=== PATIENT | female | born 1980 | race Caucasian/White ===

== ENCOUNTER 2023-01-05 07:06 | Inpatient (IN) | payer OTHER ==
[2023-01-05] MEDS ORDERED: SODIUM CHLORIDE 0.9% 1,000 ML IV STA (07:33)
[2023-01-05] MEDS ORDERED: ONDANSETRON 4 MG/2 ML VIAL IVP STA (07:33)
[2023-01-05] MEDS ORDERED: KETOROLAC 15 MG/ML 1 ML VIAL IVP STA ×2 (07:33→12:10)
--- NOTE | 2023-01-05 07:39 | ED ---
Abdominal Pain HPI - General Source: patient, RN notes reviewed Mode of arrival: ambulatory Limitations: no limitations - History of Present Illness MD Complaint: abdominal pain, flank pain Location: R flank Radiation: RLQ Associated Symptoms: nausea <Georgina Bravo - Last Filed: 01/09/23 17:00> <Jhonny Van - Last Filed: 01/10/23 21:10> - General Chief Complaint: Abdominal Pain Stated Complaint: Abdominal pain, Nausea, Lowerback Pain Time Seen by Provider: 01/05/23 07:27 - History of Present Illness Initial Comments: This is a 42-year-old female who presents to the emergency department for right flank pain. Patient states that this woke her up at around 12:30 AM. Denies any history of similar symptoms in the past. States that she does have some radiation into the right lower quadrant. She does not have her appendix. Also has no history of kidney stones. She has urinary urgency but no burning with urination or blood in the urine. Denies any changes in bowel habits. She feels nauseous but has no vomiting. With regards to the patient's obstetrics history. She is . Her children are 16 and 17 years old. She had a tubal ligation 15.5 years ago followed by a uterine ablation 12 years ago. Since then her periods have been regular, occurring every 4 weeks. Last period was 2 weeks ago. She is not currently follow with an [facility], and has not done so for several years. Denies any fevers, chills, sore throat, cough, dyspnea, chest pain, palpitations, vomiting, diarrhea, or headaches. (Georgina Bravo) - Related Data Home Medications Medication Instructions Recorded Confirmed No Known Home Medications 01/05/23 01/05/23 Allergies Allergy/AdvReac Type Severity Reaction Status Date / Time No Known Allergies Allergy Verified 01/05/23 14:34 Review of Systems ROS Other: All systems not noted in ROS Statement are negative. <Georigna Bravo - Last Filed: 01/09/23 17:00> ROS Other: All systems not noted in ROS Statement are negative. <Jhonny Van - Last Filed: 01/10/23 21:10> ROS Statement: Those systems with pertinent positive or pertinent negative responses have been documented in the HPI. Past Medical History Past Medical History: No Reported History History of Any Multi-Drug Resistant Organisms: None Reported Past Surgical History: Cholecystectomy Past Psychological History: No Psychological Hx Reported Smoking Status: Never smoker Past Alcohol Use History: Occasional Past Drug Use History: None Reported <Georgina Bravo - Last Filed: 01/09/23 17:00> General Exam Limitations: no limitations General appearance: alert, in distress Head exam: Present: atraumatic, normocephalic, normal inspection Respiratory exam: Present: normal lung sounds bilaterally. Absent: respiratory distress, wheezes, rales, rhonchi, stridor Cardiovascular Exam: Present: regular rate, normal rhythm, normal heart sounds. Absent: systolic murmur, diastolic murmur, rubs, gallop, clicks GI/Abdominal exam: Present: soft, tenderness (RLQ), normal bowel sounds. Absent: distended, guarding, rebound, rigid External exam: Present: normal external exam. Absent: erythema, swelling Speculum exam: Present: normal speculum exam. Absent: erythema, vaginal discharge, cervical discharge, vaginal bleeding By manual exam: Present: adnexal tenderness (Right) Neurological exam: Present: alert, oriented X3, CN II-XII intact Psychiatric exam: Present: normal affect, normal mood Skin exam: Present: warm, dry, intact, normal color. Absent: rash <Georgina Bravo - Last Filed: 01/09/23 17:00> Course Vital Signs 01/05/23 01/05/23 01/05/23 07:10 10:00 10:36 Temperature 98 F 97.8 F Pulse Rate 109 H 85 82 Respiratory 18 20 18 Rate Blood Pressure 138/84 93/71 102/71 O2 Sat by Pulse 100 98 97 Oximetry 01/05/23 13:00 Temperature Pulse Rate 78 Respiratory 18 Rate Blood Pressure 100/69 O2 Sat by Pulse 98 Oximetry Medical Decision Making - Lab Data Result diagrams: 01/06/23 21:13 01/05/23 08:17 - Radiology Data Radiology results: report reviewed, image reviewed <Georgina Bravo - Last Filed: 01/09/23 17:00> - Lab Data Result diagrams: 01/06/23 21:13 01/05/23 08:17 <Jhonny Van - Last Filed: 01/10/23 21:10> - Medical Decision Making This is a 42-year-old female who presents to the emergency department for right flank pain. Was pt. sent in by a medical professional or institution? @ -No Did you speak to anyone other than the patient for history? @ -No Did you review nursing and triage notes? @ -Yes, and I agree, it is accurate with regards to the patient's symptoms. Were old charts reviewed? @ -No Differential Diagnosis? @ -Differential Back Pain: Strain, zoster, cauda equina syndrome, epidural abscess, vertebral osteomyelitis, discitis, fracture, subluxation, disc herniation, DJD, spinal stenosis, dissection, AAA, pancreatitis, peptic ulcer disease, pyelonephritis, kidney stone, this is not meant to be an all-inclusive list. -Differential Abdominal Pain Women: Appendicitis, Cholecystitis, diverticulosis, ischemic bowel, pancreatitis, hepatitis, UTI, gastroenteritis, AAA, incarcerated hernia, bowel obstruction, constipation, inflammatory bowel, hepatitis, peptic ulcer disease, splenic infarction, perforated viscus, vulvitis, ovarian torsion, PID, kidney stone, placenta abruption, this is not meant to be an all-inclusive list CT interpreted by me (1pt min.)? @ -Computed tomography scan of the abdomen and pelvis obtained. My interpretation identifies a right adnexal mass with free fluid in the abdomen and pelvis. U/S interpreted by me (1pt. min.)? @ -Pelvic US obtained. My interpretation identifies a mass in the right adnexa. What testing was considered but not performed? (CT, X-rays, U/S, labs)? Why? @ -None What meds were considered but not given? Why? @ -None Did you discuss the management of the patient with other professionals? @ -Yes, Dr. Wong, [facility], who took the patient for urgent surgical intervention. Did you reconcile home meds? @ -No Was smoking cessation discussed for >3mins.? @ -No Was critical care preformed (if so, how long)? @ -No Were there social determinants of health that impacted care today? How? (Homelessness, low income, unemployed, alcoholism, drug addiction, transportation, low edu. Level, literacy, decrease access to med. care, fci, rehab)? @ -No Was there de-escalation of care discussed even if they declined? (Discuss DNR or withdrawal of care, Hospice)? @ -No What co-morbidities impacted this encounter? (DM, HTN, Smoking, COPD, CAD, Cancer, CVA, Hep., AIDS, mental health diagnosis, sleep apnea, morbid obesity)? @ -None Was patient admitted / discharged? @ -Admitted. Lab work obtained revealing leukocytosis. Computed tomography scan of the abdomen and pelvis was obtained without contrast due to initial concern for renal calculus. Unfortunately, this limited the visualization of other structures. Radiology called me to discuss findings, which were concerning for a complex fluid collection in the abdomen and pelvis, and recommended a pelvic ultrasound. Pelvic ultrasound obtained revealing suspected heterogeneous solid masses within the right adnexa and recommended a computed tomography scan for better visualization. The decision was subsequently made to obtain another computed tomography scan, this time with IV contrast. Findings revealed extravasation within the region of the endometrial canal/uterus from suspected endometrial/uterine lesion. There is also a moderate amount of complex free fluid throughout the abdomen and pelvis favored to represent hemoperitoneum. Case discussed Dr. Van, who advised [facility] consultation. Case discussed with Dr. Wong, who was concerned about a malignancy. We discussed that the patient has a stable hemoglobin/hematocrit and is hemodynamically stable. However, she is very uncomfortable and overall looks unwell. While she does not have a rigid abdomen, she has guarding and rebound tenderness. Dr. Wong came to the emergency department and evaluated the patient, and took her to the OR for urgent surgical intervention. Undiagnosed new problem with uncertain prognosis? @ -None Drug Therapy requiring intensive monitoring for toxicity (Heparin, Nitro, Insulin, Cardizem)? @ -None Were any procedures done? @ -None Diagnosis/symptom? @ -Hemoperitoneum, Right adnexal mass Acute, or Chronic, or Acute on Chronic? @ -Acute Uncomplicated (without systemic symptoms) or Complicated (systemic symptoms)? @ -Complicated Side effects of treatment? @ -None Exacerbation, Progression, or Severe Exacerbation] @ -Not applicable Poses a threat to life or bodily function? @ -Yes This case was discussed in detail with the attending ED physician, Dr. Van. Presentation, findings, and treatment plan discussed in detail as well. (Georgina Bravo) SUPERVISORY NOTE: I have reviewed all documentation, results, and performed the MDM in its entirety, which constitutes a substantive portion of the visit. I did evaluate this patient as well. Patient did have moderate abdominal tende rness and still looks unwell. Reports reviewed. I did speak with Dr. Rubin who did evaluate the patient to take to operating room. (Jhonny Van) - Lab Data Lab Results 01/05/23 01/05/23 01/05/23 Range/Units 08:17 08:17 08:17 WBC 16.7 H (3.8-10.6) k/uL RBC 3.71 L (3.80-5.40) m/uL Hgb 11.4 (11.4-16.0) gm/dL Hct 32.9 L (34.0-46.0) % MCV 88.8 (80.0-100.0) fL MCH 30.7 (25.0-35.0) pg MCHC 34.5 (31.0-37.0) g/dL RDW 13.2 (11.5-15.5) % Plt Count 210 (150-450) k/uL MPV 7.9 Neutrophils % 91 % Lymphocytes % 5 % Monocytes % 2 % Eosinophils % 0 % Basophils % 0 % Neutrophils # 15.2 H (1.3-7.7) k/uL Lymphocytes # 0.9 L (1.0-4.8) k/uL Monocytes # 0.4 (0-1.0) k/uL Eosinophils # 0.1 (0-0.7) k/uL Basophils # 0.1 (0-0.2) k/uL Sodium (137-145) mmol/L Potassium (3.5-5.1) mmol/L Chloride (98-107) mmol/L Carbon Dioxide (22-30) mmol/L Anion Gap mmol/L BUN (7-17) mg/dL Creatinine (0.52-1.04) mg/dL Est GFR (CKD-EPI)AfAm (>60 ml/min/1.73 sqM) Est GFR (CKD-EPI)NonAf (>60 ml/min/1.73 sqM) Glucose (74-99) mg/dL Plasma Lactic Acid Percy (0.7-2.0) mmol/L Calcium (8.4-10.2) mg/dL Total Bilirubin (0.2-1.3) mg/dL AST (14-36) U/L ALT (4-34) U/L Alkaline Phosphatase (38-126) U/L Total Protein (6.3-8.2) g/dL Albumin (3.5-5.0) g/dL Amylase (30-110) U/L Lipase (23-300) U/L Urine Color Yellow Urine Appearance Cloudy H (Clear) Urine pH 6.0 (5.0-8.0) Ur Specific Hudson 1.028 (1.001-1.035) Urine Protein 1+ H (Negative) Urine Glucose (UA) Trace H (Negative) Urine Ketones Trace H (Negative) Urine Blood Negative (Negative) Urine Nitrite Negative (Negative) Urine Bilirubin Negative (Negative) Urine Urobilinogen <2.0 (<2.0) mg/dL Ur Leukocyte Esterase Negative (Negative) Urine RBC 1 (0-5) /hpf Urine WBC 1 (0-5) /hpf Ur Squamous Epith Cells 2 (0-4) /hpf Amorphous Sediment Rare H (None) /hpf Urine Mucus Many H (None) /hpf Urine HCG, Qual Not Detected (Not Detectd) Blood Type Blood Type Recheck Bld Type Recheck Status Antibody Screen Crossmatch Spec Expiration Date 01/05/23 01/05/23 01/05/23 Range/Units 08:17 08:17 14:15 WBC (3.8-10.6) k/uL RBC (3.80-5.40) m/uL Hgb (11.4-16.0) gm/dL Hct (34.0-46.0) % MCV (80.0-100.0) fL MCH (25.0-35.0) pg MCHC (31.0-37.0) g/dL RDW (11.5-15.5) % Plt Count (150-450) k/uL MPV Neutrophils % % Lymphocytes % % Monocytes % % Eosinophils % % Basophils % % Neutrophils # (1.3-7.7) k/uL Lymphocytes # (1.0-4.8) k/uL Monocytes # (0-1.0) k/uL Eosinophils # (0-0.7) k/uL Basophils # (0-0.2) k/uL Sodium 135 L (137-145) mmol/L Potassium 3.9 (3.5-5.1) mmol/L Chloride 105 (98-107) mmol/L Carbon Dioxide 22 (22-30) mmol/L Anion Gap 8 mmol/L BUN 11 (7-17) mg/dL Creatinine 0.68 (0.52-1.04) mg/dL Est GFR (CKD-EPI)AfAm >90 (>60 ml/min/1.73 sqM) Est GFR (CKD-EPI)NonAf >90 (>60 ml/min/1.73 sqM) Glucose 134 H (74-99) mg/dL Plasma Lactic Acid Percy 1.9 (0.7-2.0) mmol/L Calcium 8.5 (8.4-10.2) mg/dL Total Bilirubin 0.4 (0.2-1.3) mg/dL AST 17 (14-36) U/L ALT 19 (4-34) U/L Alkaline Phosphatase 44 (38-126) U/L Total Protein 6.8 (6.3-8.2) g/dL Albumin 3.9 (3.5-5.0) g/dL Amylase 95 (30-110) U/L Lipase 251 (23-300) U/L Urine Color Urine Appearance (Clear) Urine pH (5.0-8.0) Ur Specific Hudson (1.001-1.035) Urine Protein (Negative) Urine Glucose (UA) (Negative) Urine Ketones (Negative) Urine Blood (Negative) Urine Nitrite (Negative) Urine Bilirubin (Negative) Urine Urobilinogen (<2.0) mg/dL Ur Leukocyte Esterase (Negative) Urine RBC (0-5) /hpf Urine WBC (0-5) /hpf Ur Squamous Epith Cells (0-4) /hpf Amorphous Sediment (None) /hpf Urine Mucus (None) /hpf Urine HCG, Qual (Not Detectd) Blood Type A Positive Blood Type Recheck No Previous Record Bld Type Recheck Status CABO Indicated Antibody Screen NEGATIVE Crossmatch See Detail Spec Expiration Date 01/08/2023 - 231401/05/23 Range/Units 14:23 WBC 16.4 H (3.8-10.6) k/uL RBC 3.19 L (3.80-5.40) m/uL Hgb 9.7 L D (11.4-16.0) gm/dL Hct 28.3 L (34.0-46.0) % MCV 88.9 (80.0-100.0) fL MCH 30.5 (25.0-35.0) pg MCHC 34.3 (31.0-37.0) g/dL RDW 13.4 (11.5-15.5) % Plt Count 196 (150-450) k/uL MPV 8.3 Neutrophils % % Lymphocytes % % Monocytes % % Eosinophils % % Basophils % % Neutrophils # (1.3-7.7) k/uL Lymphocytes # (1.0-4.8) k/uL Monocytes # (0-1.0) k/uL Eosinophils # (0-0.7) k/uL Basophils # (0-0.2) k/uL Sodium (137-145) mmol/L Potassium (3.5-5.1) mmol/L Chloride (98-107) mmol/L Carbon Dioxide (22-30) mmol/L Anion Gap mmol/L BUN (7-17) mg/dL Creatinine (0.52-1.04) mg/dL Est GFR (CKD-EPI)AfAm (>60 ml/min/1.73 sqM) Est GFR (CKD-EPI)NonAf (>60 ml/min/1.73 sqM) Glucose (74-99) mg/dL Plasma Lactic Acid Percy (0.7-2.0) mmol/L Calcium (8.4-10.2) mg/dL Total Bilirubin (0.2-1.3) mg/dL AST (14-36) U/L ALT (4-34) U/L Alkaline Phosphatase (38-126) U/L Total Protein (6.3-8.2) g/dL Albumin (3.5-5.0) g/dL Amylase (30-110) U/L Lipase (23-300) U/L Urine Color Urine Appearance (Clear) Urine pH (5.0-8.0) Ur Specific Hudson (1.001-1.035) Urine Protein (Negative) Urine Glucose (UA) (Negative) Urine Ketones (Negative) Urine Blood (Negative) Urine Nitrite (Negative) Urine Bilirubin (Negative) Urine Urobilinogen (<2.0) mg/dL Ur Leukocyte Esterase (Negative) Urine RBC (0-5) /hpf Urine WBC (0-5) /hpf Ur Squamous Epith Cells (0-4) /hpf Amorphous Sediment (None) /hpf Urine Mucus (None) /hpf Urine HCG, Qual (Not Detectd) Blood Type Blood Type Recheck Bld Type Recheck Status Antibody Screen Crossmatch Spec Expiration Date Disposition <Georgina Bravo - Last Filed: 01/09/23 17:00> <Jhonny Van - Last Filed: 01/10/23 21:10> Clinical Impression: Hemoperitoneum, Adnexal mass Disposition: ADMITTED IP TO THIS HOSP Condition: Good
[2023-01-05 08:31] LABS: Basophils # (A) 0.1 k/uL (0-0.2); Basophils % (A) 0 %; Eosinophils # (A) 0.1 k/uL (0-0.7); Eosinophils % (A) 0 %; HCT 32.9 % (34.0-46.0); HGB 11.4 gm/dL (11.4-16.0); Lymphocytes # (A) 0.9 k/uL (1.0-4.8); Lymphocytes % (A) 5 %; MCH 30.7 pg (25.0-35.0); MCHC 34.5 g/dL (31.0-37.0); MCV 88.8 fL (80.0-100.0); Mean Platelet Volume 7.9; Monocytes # (A) 0.4 k/uL (0-1.0); Monocytes % (A) 2 %; Neutrophils # (A) 15.2 k/uL (1.3-7.7); Neutrophils % (A) 91 %; Platelet Count 210 k/uL (150-450); RBC 3.71 m/uL (3.80-5.40); RDW 13.2 % (11.5-15.5); WBC 16.7 k/uL (3.8-10.6)
[2023-01-05 08:54] LABS: Amorphous Sediment,Urine Rare /hpf; Appearance,Urine Cloudy (Clear); Bilirubin,Urine Negative (Negative); Blood,Urine Negative (Negative); Color,Urine Yellow; Glucose,Urine (UA) Trace (Negative); Ketones,Urine Trace (Negative); Leukocyte Esterase,Urine Negative (Negative); Mucus,Urine Many /hpf; Nitrite,Urine Negative (Negative); Protein,Urine 1+ (Negative); RBC,Urine 1 /hpf (0-5); Specific Gravity,Urine 1.028 (1.001-1.035); Squamous Epithelial Cell,Urine 2 /hpf (0-4); Urobilinogen,Urine <2.0 mg/dL (<2.0); WBC,Urine 1 /hpf (0-5)
[2023-01-05 09:08] LABS: ALT 19 U/L (4-34); AST 17 U/L (14-36); African American GFR (CKD) >90 (>60 ml/min/1.73 sqM); Albumin 3.9 g/dL (3.5-5.0); Alkaline Phosphatase 44 U/L (38-126); Amylase 95 U/L (30-110); Anion Gap 8 mmol/L; Blood Urea Nitrogen 11 mg/dL (7-17); Calcium 8.5 mg/dL (8.4-10.2); Carbon Dioxide 22 mmol/L (22-30); Chloride 105 mmol/L (98-107); Glucose 134 mg/dL (74-99); Lipase 251 U/L (23-300); Non-African American GFR(CKD) >90 (>60 ml/min/1.73 sqM); Potassium 3.9 mmol/L (3.5-5.1); Sodium 135 mmol/L (137-145); Total Bilirubin 0.4 mg/dL (0.2-1.3); Total Protein 6.8 g/dL (6.3-8.2)
[2023-01-05] MEDS ORDERED: HYDROmorphone 0.5 MG/0.5 ML SYRINGE IVP STA ×2 (09:54→12:09)
--- NOTE | 2023-01-05 09:54 | CT ---
EXAMINATION TYPE: CT abdomen pelvis wo con CT DLP: 368.6 mGycm, Automated exposure control for dose reduction was used. DATE OF EXAM: 01/05/2023 9:30 AM COMPARISON: None CLINICAL INDICATION:Female, 42 years old with history of Right flank pain; LLQ and flank pain. TECHNIQUE: Standard CT of the abdomen and pelvis without IV or oral contrast. Lack of IV or oral co ntrast limits evaluation of solid and hollow organ viscera. Coronal and sagittal reformats were perfo rmed. FINDINGS: LOWER CHEST: Unremarkable ABDOMEN LIVER: Right hepatic lobe 1.8 cm cyst at GALLBLADDER AND BILE DUCTS: The gallbladder is surgically absent. PANCREAS: Unremarkable noncontrast appearance. SPLEEN: Unremarkable noncontrast appearance. ADRENAL GLANDS: Unremarkable noncontrast appearance. KIDNEYS AND URETERS: No evidence of hydronephrosis or renal calculus. PELVIS BLADDER: Incompletely distended but grossly unremarkable. REPRODUCTIVE: Complex free fluid in the pelvis surrounding the uterus. Poor visualization of the ovar ies. Evaluation is limited due to lack of IV contrast. ABDOMEN & PELVIS STOMACH AND BOWEL: Stomach and duodenum are unremarkable. The appendix is not definitively visualized . No evidence of bowel obstruction. Linear calcifications and/or suture material identified in the re gion of the cecum PERITONEUM: No evidence of pneumoperitoneum. Small to moderate amount of mildly complex free fluid th roughout the abdomen and pelvis. VASCULATURE: No evidence of aortic aneurysm. MUSCULOSKELETAL: No acute osseous abnormalities LYMPH NODES: No gross evidence for lymphadenopathy. SOFT TISSUE/ABDOMINAL WALL: Unremarkable IMPRESSION: 1. Small to moderate mildly complex fluid throughout the abdomen and pelvis concerning for hemorrhage . 2. Poor visualization of the uterus and adnexa due to surrounding free fluid and lack of intravenous contrast. Findings may represent ruptured hemorrhagic cyst versus other etiologies. Further evaluatio n with pelvic ultrasound is recommended. Findings called to and discussed with ordering provider Georgina Bravo at 9:49 AM on 01/05/2023.
--- NOTE | 2023-01-05 11:58 | US ---
EXAMINATION TYPE: US transvaginal DATE OF EXAM: 01/05/2023 COMPARISON: CLINICAL HISTORY: RLQ and right flank pain, abnormal CT. Per patient, hx endometrial ablation and tub al ligation x years ago. Neg urine HCG. EC patient. TECHNIQUE: Transvaginal (TV). Date of LMP: 12/20/2022, EXAM MEASUREMENTS: Uterus: 9.2 x 5.5 x 4.7 cm Endometrial Stripe: 0.4 cm Left Ovary: 3.2 x 1.6 x 1.6 cm 1. Uterus: Anteverted Two posterior lesions seen: 1= 3.2 x 3.0 x 2.2 cm. 2= 2.3 x 2.4 x 2.1 cm. Findings are likely related to uterine fibroids. 2. Endometrium: wnl 3. Right Ovary: Unable to accurately visualize, seen adnexal notes. 4. Left Ovary: wnl Spectral, color and waveform doppler imaging shows good arterial and venous flow within the left ov nava; there is no evidence for ovarian torsion. 5. Bilateral Adnexa: Right adnexal hypoechoic heterogenous nondefined area= 8.4 x 4.5 x 4.8 cm with a complex area seen within = 3.1 x 2.9 x 2.5 cm. These may have solid components. Follow-up is recom mended. 6. Posterior cul-de-sac: free fluid seen with internal echoes IMPRESSION: 1. Uterine fibroids. 2. Suspected heterogenous solid masses within the right adnexa. CT recommended for additional workup.
[2023-01-05] MEDS ORDERED: METOCLOPRAMIDE 5 MG/ML 2 ML VIAL IVP STA (12:15)
--- NOTE | 2023-01-05 13:10 | CT ---
EXAMINATION TYPE: CT abdomen pelvis w con CT DLP: 759.1 mGycm, Automated exposure control for dose reduction was used. DATE OF EXAM: 01/05/2023 12:43 PM COMPARISON: CT abdomen pelvis earlier today. Pelvic ultrasound 01/05/2023. CLINICAL INDICATION:Female, 42 years old with history of Abnormal CT and US findings; abd pain TECHNIQUE: Standard CT of the abdomen and pelvis following the administration of 100 cc of Isovue 3 70 IV contrast material. Coronal and sagittal reformats were performed. FINDINGS: LOWER CHEST: Stable right hepatic lobe cyst measuring up to 1.7 cm with a few additional subcentimete r hypodense foci throughout the liver which are too small to characterize but likely represent cysts. ABDOMEN LIVER: Unremarkable GALLBLADDER AND BILE DUCTS: The gallbladder is surgically absent. PANCREAS: Unremarkable. SPLEEN: Unremarkable. ADRENAL GLANDS: Unremarkable. KIDNEYS AND URETERS: No evidence of hydronephrosis or renal calculus. The kidneys enhance symmetrical ly without suspicious focal lesion. PELVIS BLADDER: Incompletely distended but grossly unremarkable. REPRODUCTIVE: Poor distinction of the uterus. There is heterogenous lobulated enhancement within the suspected region of the endometrial canal/uterus favored to represent active extravasation. Cystic st ructure with peripheral enhancement within the right adnexa measuring 2.6 x 1.5 cm. ABDOMEN & PELVIS STOMACH AND BOWEL: Stomach and duodenum are unremarkable. No focal wall thickening. The appendix is n ot visualized and could be surgically absent. No evidence of bowel obstruction. PERITONEUM: No evidence of pneumoperitoneum. Moderate amount of complex free fluid throughout the abd omen and pelvis. VASCULATURE: No evidence of aortic aneurysm. MUSCULOSKELETAL: No acute osseous abnormalities LYMPH NODES: No gross evidence for lymphadenopathy. SOFT TISSUE/ABDOMINAL WALL: Unremarkable IMPRESSION: Favored active extravasation within the region of the endometrial canal/uterus possibly from an endom etrial/uterine lesion. Additionally there is moderate amount of complex free fluid throughout the abd omen pelvis favored to represent hemoperitoneum. Correlation with H&H levels recommended. Surgical co nsult is recommended. Findings called to and discussed with CYN Estrada at 1:07 PM on 01/05/2023.
[2023-01-05] MEDS ORDERED: NALOXONE 0.4 MG/ML 1 ML VIAL IV PRN (14:27)
[2023-01-05] MEDS ORDERED: LACTATED RINGERS 1,000 ML IV ONE ×2 (14:38→15:31)
[2023-01-05] MEDS ORDERED: DEXAMETHASONE SOD PHOS (MDV) 100 MG/10 ML VIAL ONE (14:42)
[2023-01-05] MEDS ORDERED: fentaNYL (PF) 50 MCG/ML 2 ML AMP ONE (14:42)
[2023-01-05] MEDS ORDERED: SUCCINYLCHOLINE CHLORIDE 200 MG/10 ML VIAL IV ONE (14:42)
[2023-01-05] MEDS ORDERED: PROPOFOL 10 MG/ML 20 ML VIAL IV ONE (14:42)
[2023-01-05] MEDS ORDERED: HYDROmorphone (PF) 1 MG/ML ONE (14:42)
[2023-01-05] MEDS ORDERED: NEOSTIGMINE 1 MG/ML 10 ML VIAL ONE (14:42)
[2023-01-05] MEDS ORDERED: ROCURONIUM 10 MG/ML (5 ML VIAL) IV ONE (14:42)
[2023-01-05] MEDS ORDERED: MIDAZOLAM 2 MG/2 ML VIAL ONE (14:42)
[2023-01-05] MEDS ORDERED: LIDOCAINE 2% INJ 20 MG/ML (2 ML VIAL) ONE (14:42)
[2023-01-05] MEDS ORDERED: ONDANSETRON 4 MG/2 ML VIAL ONE (14:42)
[2023-01-05] MEDS ORDERED: GLYCOPYRROLATE 0.2 MG/ML 2 ML VIAL ONE (14:42)
[2023-01-05] MEDS ORDERED: SODIUM CHLORIDE 0.9% 50 ML with ceFAZolin 2,000 MG IV ONE ×2 (14:47)
--- NOTE | 2023-01-05 14:47 | P.HPOB ---
History of Present Illness H&P Date: 01/05/23 Chief Complaint: Severe lower abdominal and right back pain This is a 42-year-old female 2 para 2002 left cyst. 2 weeks ago who presents to the emergency room earlier today with a history of severe right lower quadrant pain which started at 12:30 this morning while the patient was sleeping. She denies any recent abdominal trauma. She has been nothing by mouth since 5:00 this morning. Studies include a pelvic ultrasound which reveals a 8.4 x 4.5 cm complex mass of the right adnexa with a 3.1 x 2.5 cm solid component. In addition, computed tomography scan is favoring active extravasation, with hemoperitoneum and abundant free fluid in the abdomen. Patient reports nausea but no vomiting. The pain is now 8 out of 10 despite 3 doses of pain medication given in the ER. Past medical history is essentially negative. Past surgical history hiatal hernia repair 6 years ago, appendectomy 1-2 years ago, cholecystectomy 15 years ago, endometrial ablation 13 years ago, bilateral tubal ligation 15 years ago. Gynecologic history patient denies GC chlamydia or other infections. She has given vaginally twice, 8 lbs. 3 oz. male infant and 6 lbs. 2 oz. female . [place]. Current medications none. ALLERGIES none known. Family history is negative for VEHICLE OPERATOR cancers, no history of ovarian or uterine cancer noted. Social history patient is single, she lives in [place] and works at the [employer] in [place]. She denies tobacco or drug use, social alcohol only. On exam patient is 5 foot 9 inches, 61 kg, vital signs are stable with a blood pressure of 100/69, pulse 78, respirations 18, 98% oxygen on room air. The chest is clear in all schneider. The cardiac exam reveals regular rate and rhythm. The abdomen is softly distended, with rebound and guarding noted, most specifically in the right gricelda-abdomen. Pelvic examination is deferred secondary to pain. Extremities are negative for edema. Patient has good dentition, is alert and oriented 3, and understands our discussion. Labs include hemoglobin 11.4, white count 16.7, negative urine hCG. Impression: 8.4 cm complex adnexal mass on the right, with CT evidence of hemoperitoneum. Surgical abdomen is noted on exam. Plan: I discussed with the patient our plan at this time of exploratory laparotomy, probable right salpingo-oophorectomy, evacuation of the hemoperitoneum and careful inspection of the pelvis. She has given me permission to proceed with surgery as I deem indicated. All questions are answered. Anesthesia and operating room aware. 2 g of Ancef given. Review of Systems Constitutional: Reports as per HPI Past Medical History Past Medical History: No Reported History History of Any Multi-Drug Resistant Organisms: None Reported Past Surgical History: Cholecystectomy Past Psychological History: No Psychological Hx Reported Smoking Status: Never smoker Past Alcohol Use History: Occasional Past Drug Use History: None Reported Medications and Allergies Home Medications Medication Instructions Recorded Confirmed Type No Known Home Medications 01/05/23 01/05/23 History Allergies Allergy/AdvReac Type Severity Reaction Status Date / Time No Known Allergies Allergy Verified 01/05/23 14:34 Exam Vital Signs Temp Pulse Pulse Resp BP BP Pulse Ox 01/05/23 14:37 97.7 F 79 16 124/84 100 01/05/23 13:00 78 18 100/69 98 01/05/23 10:36 82 18 102/71 97 01/05/23 10:00 97.8 F 85 20 93/71 98 01/05/23 07:10 98 F 109 H 18 138/84 100 Intake and Output 01/04/23 01/05/23 01/05/23 22:59 06:59 14:59 Other: Weight 61.235 kg See dictation under HPI please Results Result Diagrams: 01/05/23 08:17 01/05/23 08:17 Abnormal Lab Results - Last 24 Hours (Table) 01/05/23 01/05/23 01/05/23 Range/Units 08:17 08:17 08:17 WBC 16.7 H (3.8-10.6) k/uL RBC 3.71 L (3.80-5.40) m/uL Hct 32.9 L (34.0-46.0) % Neutrophils # 15.2 H (1.3-7.7) k/uL Lymphocytes # 0.9 L (1.0-4.8) k/uL Sodium 135 L (137-145) mmol/L Glucose 134 H (74-99) mg/dL Urine Appearance Cloudy H (Clear) Urine Protein 1+ H (Negative) Urine Glucose (UA) Trace H (Negative) Urine Ketones Trace H (Negative) Amorphous Sediment Rare H (None) /hpf Urine Mucus Many H (None) /hpf Assessment and Plan Assessment: Complex right adnexal mass, CT evidence of hemoperitoneum, surgical abdomen Plan: We will proceed with exploratory laparotomy, likely right salpingo-oophorectomy, evacuation of hemoperitoneum and careful inspection of the pelvis and abdomen. Surgery is indicated. Antibiotics given. Patient is aware of the risks and benefits of surgery to include bleeding, infection, perforation or damage to surrounding organs including bladder, ureters, bowel. All questions answered. Time with Patient: Greater than 30
[2023-01-05 15:10] LABS: HCT 28.3 % (34.0-46.0); MCH 30.5 pg (25.0-35.0); MCHC 34.3 g/dL (31.0-37.0); MCV 88.9 fL (80.0-100.0); Mean Platelet Volume 8.3; Platelet Count 196 k/uL (150-450); RBC 3.19 m/uL (3.80-5.40); RDW 13.4 % (11.5-15.5); WBC 16.4 k/uL (3.8-10.6)
[2023-01-05 15:15] LABS: HGB 9.7 gm/dL (11.4-16.0)
--- NOTE | 2023-01-05 15:40 | P.OP ---
Date of Procedure: 01/05/23 Preoperative Diagnosis: Complex right adnexal mass, CT evidence of hemoperitoneum Postoperative Diagnosis: Ruptured right ovarian cyst, small 1.5 cm ovoid foreign body noted. Normal- appearing left ovary and tube Procedure(s) Performed: Exploratory laparotomy, evacuation hemoperitoneum, right salpingo-oophorectomy, pelvic and abdominal exploration Anesthesia: KASI Surgeon: Zeenat Wong Gate Attendant #1: Spencer Stallings Estimated Blood Loss (ml): 1,200 IV fluids (ml): 1,000 Urine output (ml): 200 Pathology: other (Right tube and ovary, 1.5 cm ovoid mass free floating in the abdomen.) Condition: stable Disposition: PACU Indications for Procedure: Surgical abdomen, CT evidence of hemoperitoneum Description of Procedure: Patient is brought to the operating suite where a general anesthetic is administered without difficulty. Antibiotics are given. The abdomen is prepped and draped in usual sterile fashion, Mas catheter to direct drainage. The appropriate timeout is performed to assure proper patient and procedural identification. A low transverse skin incision is made in this is carried down through the subcutaneous tissue to the fascia. Fascia is isolated, scored, extended bilaterally with curved Martinez scissors. Upon entering the peritoneum there is a large amount of blood and dark clot, approximately 1200 mL worth. This is evacuated. The O'Raymond-O'Yu retractors then placed in the abdomen and the abdomen is packed with sterile sponges. Clamp is used and the right tube and ovary are 8 inspected. There is a hemorrhagic corpus luteal cyst noted on the right ovary that is bleeding. A Fredi clamp was brought across the base of the tube and ovary and a right salpingo-oophorectomy is performed. 0 Vicryl suture is used to tie, flashed, and retied the base for excellent hemostasis. The left ovary appears normal, evidence of left tubal ligation is noted. Uterine serosa is smooth and clear. Upon obtaining the blood and clot from the pelvis, a small 1.5 cm smooth ovoid mass is noted and sent to pathology as well. The abdomen is generously irrigated with warm saline, no additional bleeding or anomalies are noted. Peritoneum was allowed close by secondary intention. Cervical Vicryl is used on the fascia in a running manner to close the fascia securely. Muscle belly is somewhat oozy, and therefore the surgical note was placed on the rectus abdominal muscles for excellent hemostasis. Subcutaneous tissue is irrigated, clean and dry. 3-0 Vicryl is used to reapproximate the subcutaneous tissue in a running fashion. 4-0 Monocryl is used in a subcuticular manner for final skin closure. Steri-Strips and Mastisol are applied to the wound. Mas is noted to be draining clear urine. Patient is brought back to recovery room in very good condition with stable vital signs including blood pressure 115/82, pulse 85, 100% O2 saturation. A lighted RESEARCH AND DEVELOPMENT SPECIALIST is ordered in the postoperative suite for pain management.
[2023-01-05] MEDS ORDERED: diphenhydrAMINE 50 MG/ML 1 ML VIAL IVP PRN (15:41)
[2023-01-05] MEDS ORDERED: ONDANSETRON 4 MG/2 ML VIAL IVP PRN (15:41)
[2023-01-05] MEDS ORDERED: SIMETHICONE 80 MG CHEWABLE PO PRN (15:41)
[2023-01-05] MEDS ORDERED: ZOLPIDEM 5 MG TAB PO PRN (15:41)
[2023-01-05] MEDS ORDERED: HYDROmorphone PCA 10 MG/50 ML BAG IV PRN (15:42)
[2023-01-05] MEDS: METOCLOPRAMIDE 5 MG/ML 2 ML VIAL IVP PRN ×2 (18:33→23:53)
[2023-01-05] MEDS: SODIUM CHLORIDE 0.9% 1,000 ML IV SCH (20:03)
[2023-01-06] MEDS: SODIUM CHLORIDE 0.9% 1,000 ML IV SCH ×3 (02:23→20:19)
--- NOTE | 2023-01-06 07:40 | P.DS ---
Providers Date of admission: 01/05/23 14:27 Expected date of discharge: 01/06/23 Attending physician: Zeenat Wong Primary care physician: Stated None Hospital Course: This is a 42-year-old female who presented to the emergency department yesterday with increasing right lower quadrant and back pain. Evaluation was consistent with hemoperitoneum and complex right adnexal cyst. Patient had a surgical abdomen and judgment was to perform exploratory laparotomy and surgery as indicated. Please see my history and physical for details. She underwent exploratory laparotomy, right salpingo-oophorectomy and evacuation of hemoperitoneum under my care. She did well intraoperatively, had 1200 mL of blood in the abdomen and pelvis. There was a ruptured right ovarian cyst, right salpingo-oophorectomy was performed. She did well intraoperatively, please see my dictated operative note for details. This morning the patient feels sore and tired, but otherwise feels well. Hemoglobin 9.7, morning CBC pending. Vital signs are stable, pulse 88. Incision is clean and dry, intact, Steri-Strips applied. Hypoactive bowel sounds. No rebound or guarding. Patient is slightly nauseated this morning. No flatus as of yet. Plan is to advance diet slowly and advance activity as well. My hope would be for discharge home later this evening. Patient will follow-up with me in the office in 10 days. She will use [id number] Motrin, Advil or Aleve as needed for pain. No intercourse, no heavy lifting, no driving for 1 week. Continue oral iron supplement at home. Call with any fevers shakes or chills, redness drainage or issues with the incision. Call with any lightheadedness or dizziness. Pathology is pending at this time. Assessment: Doing well first postoperative day Patient Condition at Discharge: Stable Plan - Discharge Summary Discharge Rx Participant: No New Discharge Prescriptions: No Action No Known Home Medications Discharge Medication List No Known Home Medications 01/05/23 [History] Follow up Appointment(s)/Referral(s): None,Stated [Primary Care Provider] - 10 Days Discharge Disposition: HOME SELF-CARE
[2023-01-06] MEDS: METOCLOPRAMIDE 5 MG/ML 2 ML VIAL IVP PRN (09:01)
[2023-01-06 10:37] LABS: Basophils # (A) 0.03 X 10*3/uL (0.00-0.10); Basophils % (A) 0.2 %; Eosinophils # (A) 0 X 10*3/uL (0.04-0.35); Eosinophils % (A) 0 %; HCT 23.8 % (37.2-46.3); HGB 7.8 g/dL (12.0-15.0); Immature Grans, Automated 0.5 %; Lymphocytes # (A) 1.85 X 10*3/uL (0.90-5.00); Lymphocytes % (A) 12.3 %; MCH 30.4 pg (27.0-32.0); MCHC 32.8 g/dL (32.0-37.0); MCV 92.6 fL (80.0-97.0); Mean Platelet Volume 10.8 fL (9.5-12.2); Monocytes # (A) 0.87 X 10*3/uL (0.20-1.00); Monocytes % (A) 5.8 %; NRBC Per 100 WBC 0 /100 WBCS (0.0-0.0); Neutrophils # (A) 12.19 X 10*3/uL (1.80-7.70); Neutrophils % (A) 81.2 %; Platelet Count 167 X 10*3/uL (140-440); RBC 2.57 X 10*6/uL (4.10-5.20); RDW 13.2 % (11.5-14.5); WBC 15.02 X 10*3/uL (4.50-10.00)
[2023-01-06] MEDS ORDERED: SODIUM CHLORIDE 0.9% 500 ML 500 ML IV ONE (10:54)
[2023-01-06] MEDS ORDERED: ACETAMINOPHEN TAB 500 MG TAB PO PRN (11:27)
[2023-01-06] MEDS ORDERED: ACETAMINOPHEN TAB 325 MG TAB PO PRN ×2 (11:29→15:41)
[2023-01-06] MEDS: IBUPROFEN 600 MG TAB PO PRN ×2 (12:56→20:20)
[2023-01-06 21:42] LABS: Basophils % (A) 0 %; Eosinophils # (A) 0.2 k/uL (0-0.7); Eosinophils % (A) 3 %; HCT 27.7 % (34.0-46.0); HGB 9.4 gm/dL (11.4-16.0); Lymphocytes # (A) 1.6 k/uL (1.0-4.8); Lymphocytes % (A) 18 %; MCH 30.9 pg (25.0-35.0); MCHC 33.9 g/dL (31.0-37.0); MCV 91.1 fL (80.0-100.0); Mean Platelet Volume 7.6; Monocytes # (A) 0.4 k/uL (0-1.0); Monocytes % (A) 4 %; Neutrophils # (A) 6.8 k/uL (1.3-7.7); Neutrophils % (A) 74 %; Platelet Count 143 k/uL (150-450); RBC 3.05 m/uL (3.80-5.40); RDW 13.4 % (11.5-15.5); WBC 9.2 k/uL (3.8-10.6)
[2023-01-07 01:12] VITALS: RESP 18
[2023-01-07] MEDS: METOCLOPRAMIDE 5 MG/ML 2 ML VIAL IVP PRN (02:10)
[2023-01-07] MEDS: SODIUM CHLORIDE 0.9% 1,000 ML IV SCH (04:24)
[2023-01-07 07:25] VITALS: BP 132/89; PULSE 95; TEMP 98.1
--- NOTE | 2023-01-07 08:54 | P.DS ---
Providers Date of admission: 01/05/23 14:27 Expected date of discharge: 01/07/23 Attending physician: Zeenat Wong Primary care physician: Stated None Hospital Course: This is an addendum to the previously dictated discharge summary, please see my notes as of yesterday. Patient through the day remained tired, and was lightheaded upon ambulation. Pulse remained in the 120s. Decision was made to reconsider discharge. Patient did receive 1 unit of packed red blood cells and this morning appears greatly improved. Pulse 95, blood pressure stable. Her pain is also improved. She is judged this morning to be in good condition for discharge home as previously discussed, she will follow-up with me in the office in 2 weeks. Please see information from full dictation yesterday. Thank you Assessment: Doing well first postoperative day Patient Condition at Discharge: Good Plan - Discharge Summary New Discharge Prescriptions: No Action No Known Home Medications Discharge Medication List No Known Home Medications 01/05/23 [History] Follow up Appointment(s)/Referral(s): None,Stated [Primary Care Provider] - 10 Days Discharge Disposition: HOME SELF-CARE
== END 2023-01-07 11:09 | disposition home or self-care (01) | DRG 513 ==
LOC: EC 07:06 → 5NMEDONC 14:27
PROVIDERS: ADMIT Obstetrics & Gynecology; ATTEND Obstetrics & Gynecology
PROC: 0UT50ZZ Resection of Right Fallopian Tube, Open Approach (ICD-10-PCS; principal; 2023-01-05 09:25)
PROC: 0UT00ZZ Resection of Right Ovary, Open Approach (ICD-10-PCS; principal; 2023-01-05 09:25)
PROC: 30233N1 Transfusion of Nonautologous Red Blood Cells into Peripheral Vein, Percutaneous Approach (ICD-10-PCS; 2023-01-06)
DX: N83.11 Corpus luteum cyst of right ovary (principal); K66.1 Hemoperitoneum; Z98.51 Tubal ligation status
CPT/HCPCS: 36415; 74176; 74177; 76830; 80053; 81001; 81025; 82150; 83605; 83690; 85025; 85027; 86850; 86900; 86901; 86920; 87040; 88305; 93975